=== PATIENT | female | born 2000 | race Caucasian/White ===

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

== ENCOUNTER 2019-04-06 17:12 | Emergency (ER) | payer OTHER ==
[~2019-04-06] VITALS: Ht 157.5 cm; Wt 53.1 kg
[2019-04-06 17:23] VITALS: Ht 157.5 cm; Wt 53.1 kg
[2019-04-06 19:04] VITALS: BP 102/63
== END 2019-04-06 19:04 | disposition home or self-care (01) ==
LOC: ED 17:12
DX: S30.0XXA Contusion of lower back and pelvis, initial encounter (principal); W07.XXXA Fall from chair, initial encounter; Y93.89 Activity, other specified; Y92.89 Other specified places as the place of occurrence of the external cause; Y99.8 Other external cause status

== ENCOUNTER 2019-10-30 23:16 | Emergency (ER) | payer OTHER, SELFPAY ==
[~2019-10-30] VITALS: Ht 157.5 cm; Wt 54.4 kg
[2019-10-30 23:18] VITALS: BP 121/75; Ht 157.5 cm; Wt 54.4 kg
== END 2019-10-31 00:36 | disposition home or self-care (01) ==
LOC: ED 23:16
DX: R05 Cough (principal); R51 Headache; R50.9 Fever, unspecified; J02.9 Acute pharyngitis, unspecified; R07.89 Other chest pain; R43.8 Other disturbances of smell and taste; Z20.828 Contact with and (suspected) exposure to other viral communicable diseases
CPT/HCPCS: U0003-CS

== ENCOUNTER 2020-02-06 00:43 | Emergency (ER) | payer OTHER ==
[~2020-02-06] VITALS: Ht 157.5 cm; Wt 52.2 kg
[2020-02-06 02:04] LABS: BASOPHIL % 0.8 % (0-2); PLATELET COUNT 261 x10^3mcL (130-400); RED CELL DISTRIBUTION WIDTH 13.6 % (11.5-14.5)
[2020-02-06 02:10] LABS: CARBON DIOXIDE 25.4 mmol/L (21-32); CHLORIDE SERUM 104 mmol/L (98-107); CREATININE SERUM 0.7 mg/dL (0.6-1.0); GFR1 > 60 mL/min; GLUCOSE SERUM 89 mg/dL (74-106); POTASSIUM SERUM 3.8 mmol/L (3.5-5.1); SODIUM SERUM 141 mmol/L (136-145)
[2020-02-06 02:18] LABS: ALBUMIN 3.7 g/dL (3.4-5.0); ALKALINE PHOSPHATASE 90 U/L (46-116); ALT/SGPT 19 U/L (14-59); AST/SGOT 17 U/L (15-37); BILIRUBIN TOTAL 0.55 mg/dL (0.20-1.00); TOTAL PROTEIN, SERUM 7.6 g/dL (6.4-8.2)
[2020-02-06 04:05] VITALS: BP 100/55
== END 2020-02-06 04:05 | disposition home or self-care (01) ==
LOC: ED 00:43
PROVIDERS: Emergency Medicine
DX: K59.00 Constipation, unspecified (principal)